=== PATIENT | male | born 1970 | race Caucasian/White ===

== ENCOUNTER 2023-04-16 13:16 | Emergency (ER) | payer BC ==
--- NOTE | 2023-04-16 13:33 | ED ---
Chest Pain HPI - General Chief Complaint: Chest Pain Stated Complaint: Chest Discomfort from Coughing Time Seen by Provider: 04/16/23 13:32 Source: patient, RN notes reviewed Mode of arrival: ambulatory Limitations: no limitations - History of Present Illness Initial Comments: 53-year-old male presents emergency department with chief complaint of right-s ided chest pain, back pain. Patient states that been on and off for last few days. Patient states he does have a history of asthma is a daily smoker he states the pain is intermittent nothing really makes it feel better or worse but does hurt to cough at times he states it is very intense pain when it happens but subsides feels in the lower back, lung region denies any fevers or chills he has a minimally productive cough denies any complaints of abdominal pain including nausea, diarrhea constipation denies any history of cardiac disease. - Related Data Allergies Allergy/AdvReac Type Severity Reaction Status Date / Time No Known Allergies Allergy Verified 04/16/23 13:26 Review of Systems ROS Statement: Those systems with pertinent positive or pertinent negative responses have been documented in the HPI. ROS Other: All systems not noted in ROS Statement are negative. EKG Findings - EKG Comments: EKG Findings:: EKG performed at 13: 34 sinus rhythm with rate of 80 MT 155 QRS 95 QT/QTc 349/379 - EKG Results: EKG: interpreted by YUSUF Past Medical History Past Medical History: Asthma History of Any Multi-Drug Resistant Organisms: None Reported Past Surgical History: No Surgical Hx Reported Past Psychological History: No Psychological Hx Reported Smoking Status: Current every day smoker Past Alcohol Use History: Occasional Past Drug Use History: None Reported General Exam Limitations: no limitations General appearance: alert, in no apparent distress Head exam: Present: atraumatic, normocephalic, normal inspection Eye exam: Present: normal appearance, PERRL, EOMI. Absent: scleral icterus, conjunctival injection, periorbital swelling ENT exam: Present: normal exam, mucous membranes moist Neck exam: Present: normal inspection, full ROM. Absent: tenderness, meningismus, lymphadenopathy Respiratory exam: Present: normal lung sounds bilaterally. Absent: respiratory distress, wheezes, rales, rhonchi, stridor Cardiovascular Exam: Present: regular rate, normal rhythm, normal heart sounds. Absent: systolic murmur, diastolic murmur, rubs, gallop, clicks GI/Abdominal exam: Present: soft, normal bowel sounds. Absent: distended, tenderness, guarding, rebound, rigid Course Vital Signs 04/16/23 04/16/23 04/16/23 13:24 15:59 16:00 Temperature 98.4 F Pulse Rate 87 Respiratory 20 Rate Blood Pressure 137/87 135/92 135/92 O2 Sat by Pulse 99 97 Oximetry 04/16/23 17:29 Temperature Pulse Rate 82 Respiratory 16 Rate Blood Pressure 143/82 O2 Sat by Pulse 97 Oximetry Chest Pain MDM - MDM Was pt. sent in by a medical professional or institution (, PA, OUTREACH LIBRARIAN, urgent care, hospital, or intermediate...) When possible be specific @ -PCP Did you speak to anyone other than the patient for history (EMS, parent, family, police, friend...)? What history was obtained from this source @ -No Did you review nursing and triage notes (agree or disagree)? Why? @ -I reviewed and agree with nursing and triage notes Were old charts reviewed (outside hosp., previous admission, EMS record, old EKG, old radiological studies, urgent care reports/EKG's, intermediate records)? Report findings @ -No old charts were reviewed Differential Diagnosis (chest pain, altered mental status, abdominal pain women, abdominal pain men, vaginal bleeding, weakness, fever, dyspnea, syncope, headache, dizziness, GI bleed, back pain, seizure, CVA, palpatations, mental health, musculoskeletal)? @ -[Differential Chest Pain: Stable Angina, Unstable Angina, STEMI, NSTEMI Aortic Dissection, Pneumothorax, Musculoskeletal, Esophageal Spasm GERD, Cholecystitis, Pancreatitis, Zoster, this is not meant to be an all-inclusive list. EKG interpreted by me (3pts min.). @ -As above X-rays interpreted by me (1pt min.). @ -[Chest x-ray shows no acute cardiopulmonary process CT interpreted by me (1pt min.). @ -None done U/S interpreted by me (1pt. min.). @ -[Ultrasound gallbladder shows gallbladder polyp, hepatic lesion noted recommending MRI What testing was considered but not performed or refused? (CT, X-rays, U/S, labs)? Why? @ -MRI will be completed outpatient offered CT What meds were considered but not given or refused? Why? @ -None Did you discuss the management of the patient with other professionals (professionals i.e. , PA, OUTREACH LIBRARIAN, lab, RT, psych nurse, social services specialist, quantitative developer, teacher, chief communications officer, medical case manager)? Give summary @ -No Was smoking cessation discussed for >3mins.? @ -No Was critical care preformed (if so, how long)? @ -No Were there social determinants of health that impacted care today? How? (Homelessness, low income, unemployed, alcoholism, drug addiction, transporta tion, low edu. Level, literacy, decrease access to med. care, prison, rehab)? @ -No Was there de-escalation of care discussed even if they declined (Discuss DNR or withdrawal of care, Hospice)? DNR status @ -No What co-morbidities impacted this encounter? (DM, HTN, Smoking, COPD, CAD, Cancer, CVA, ARF, Chemo, Hep., AIDS, mental health diagnosis, sleep apnea, morbid obesity)? @ -None Was patient admitted / discharged? Hospital course, mention meds given and route, prescriptions, significant lab abnormalities, going to OR and other pertinent info. @ -Discharge patient's been having intermittent right scapular pain, back pain. This is episodic in nature. Patient's workup was negative other than acute findings on ultrasound. I did offer CT patient feels comfortable with outpatient follow-up return brands were discussed. Undiagnosed new problem with uncertain prognosis? @ -'s Drug Therapy requiring intensive monitoring for toxicity (Heparin, Nitro, Insulin, Cardizem)? @ -No Were any procedures done? @ -No Diagnosis/symptom? @ -[Shoulder pain, back pain, hepatic lesion, gallbladder polyp Acute, or Chronic, or Acute on Chronic? @ -Acute Uncomplicated (without systemic symptoms) or Complicated (systemic symptoms)? @ -[Complicated Side effects of treatment? @ -[No Exacerbation, Progression, or Severe Exacerbation? @ -No Poses a threat to life or bodily function? How? (Chest pain, [place], [place], pneumonia, PE, COPD, DKA, ARF, appy, cholecystitis, CVA, Diverticulitis, Homicidal, Suicidal, threat to staff... and all critical care pts) @ -No Disposition Clinical Impression: Gall bladder polyp, Liver lesion, Chest wall pain Disposition: HOME SELF-CARE Condition: Stable Instructions (If sedation given, give patient instructions): Chest Pain (ED) Additional Instructions: Please return to the Emergency Department if symptoms worsen or any other concerns. Is patient prescribed a controlled substance at d/c from ED?: No Referrals: Earle Chavarria MD [Primary Care Provider] - 1-2 days Veronica Trujillo MD [STAFF PHYSICIAN] - 1-2 days Time of Disposition: 17:21
[2023-04-16 13:41] VITALS: TEMP 98.4
--- NOTE | 2023-04-16 14:18 | XR ---
EXAMINATION TYPE: XR chest 2V DATE OF EXAM: 04/16/2023 COMPARISON: NONE TECHNIQUE: PA and lateral views submitted. HISTORY: Chest pain and cough FINDINGS: The lungs are clear and there is no pneumothorax, pleural effusion, or focal pneumonia. Heart size normal and no overt failure. Osseous structures demonstrate hypertrophic and degenerative changes of the spine. Hyperinflation suggests COPD IMPRESSION: 1. No acute process.
[2023-04-16 14:26] LABS: Basophils % (A) 1 %; Eosinophils # (A) 0.3 k/uL (0-0.7); Eosinophils % (A) 8 %; HCT 45.9 % (39.0-53.0); HGB 15.1 gm/dL (13.0-17.5); Lymphocytes # (A) 1.2 k/uL (1.0-4.8); Lymphocytes % (A) 27 %; MCH 32.5 pg (25.0-35.0); MCHC 32.9 g/dL (31.0-37.0); MCV 98.7 fL (80.0-100.0); Monocytes # (A) 0.3 k/uL (0-1.0); Monocytes % (A) 7 %; Neutrophils # (A) 2.3 k/uL (1.3-7.7); Neutrophils % (A) 54 %; Platelet Count 193 k/uL (150-450); RBC 4.65 m/uL (4.30-5.90); RDW 12.9 % (11.5-15.5); WBC 4.3 k/uL (3.8-10.6)
[2023-04-16 14:37] LABS: ALT 25 U/L (4-49); AST 26 U/L (17-59); African American GFR (CKD) >90 (>60 ml/min/1.73 sqM); Albumin 4.4 g/dL (3.5-5.0); Alkaline Phosphatase 99 U/L (38-126); Anion Gap 7 mmol/L; Blood Urea Nitrogen 21 mg/dL (9-20); Carbon Dioxide 24 mmol/L (22-30); Chloride 108 mmol/L (98-107); Glucose 130 mg/dL (74-99); Magnesium 2.1 mg/dL (1.6-2.3); Non-African American GFR(CKD) >90 (>60 ml/min/1.73 sqM); Potassium 4.5 mmol/L (3.5-5.1); Sodium 139 mmol/L (137-145); Total Bilirubin 0.3 mg/dL (0.2-1.3); Total Protein 6.9 g/dL (6.3-8.2)
[2023-04-16 14:46] LABS: INR 0.8 (<1.2); Partial Thromboplastin Time 23.6 sec (22.0-30.0); Prothrombin Time 9.5 sec (10.0-12.5)
--- NOTE | 2023-04-16 17:03 | US ---
EXAMINATION TYPE: US gallbladder DATE OF EXAM: 04/16/2023 COMPARISON: 11/01/2015. CLINICAL INDICATION: Male, 53 years old with history of pain; right lateral back pain TECHNIQUE: Multiple sonographic images of the right upper quadrant are obtained. FINDINGS: EXAM MEASUREMENTS: Liver Length: 18.0 cm Gallbladder Wall: 0.2 cm CBD: 0.3 cm Right Kidney: 11.0x3.9x5.1 cm Pancreas: dilated pancreatic duct: 0.2cm, tail obscured Liver: enlarged, left lobe complex vascular lesion measuring 1.9x2.7x2.7cm Gallbladder: Gallbladder polyp measuring up to 4 mm. Evidence for sonographic Atkinson's sign: No CBD: wnl Right Kidney: No hydronephrosis or masses seen exam slightly limited by overlying bowel IMPRESSION: 1. Indeterminate left hepatic lobe lesion measuring up to 2.7 cm. MRI liver mass protocol recommende d for complete characterization. In the setting of malignancy this could represent metastatic disease . If there is no history of extrahepatic malignancy this could represent a benign etiology including both malignant and benign etiologies. 2. Gallbladder polyp measuring up to 4 mm. Short-term follow-up in [address] ability.
[2023-04-16 17:51] VITALS: BP 143/82; PULSE 82; RESP 16
== END 2023-04-16 17:29 | disposition home or self-care (01) ==
LOC: EC 13:16
DX: K82.4 Cholesterolosis of gallbladder (principal); K76.9 Liver disease, unspecified; R07.89 Other chest pain; J45.909 Unspecified asthma, uncomplicated; F17.200 Nicotine dependence, unspecified, uncomplicated
CPT/HCPCS: 36415; 71046; 76705; 80053; 83735; 84484; 85025; 85379; 85610; 85730; 93005; 99285

== ENCOUNTER 2024-09-25 14:55 | Emergency (ER) | payer BC ==
[2024-09-25 15:41] VITALS: RESP 18
--- NOTE | 2024-09-25 15:44 | ED ---
General Adult HPI - General Chief complaint: Chest Pain Stated complaint: abn labs Time Seen by Provider: 09/25/24 15:07 Source: patient Mode of arrival: ambulatory Limitations: no limitations - History of Present Illness Initial comments: Patient is a 54-year-old gentleman past medical history of asthma, current smoker presenting today for chest pain. Patient states he began having diarrhea on Sunday, states he had 3-4 loose stools a day. This morning he woke up with substernal chest pain that he describes "as a pain in his core". It lasted from about 5:30 to 9 AM. Patient had further episodes of diarrhea and he took a dose of Pepto-Bismol. He then had a large volume black stool. Went to [facility] where he was given a GI cocktail, had x-rays performed and was sent to the emergency department for further evaluation of his chest pain. Patient states pain has now resolved. He has had similar a few times in the past, stating he has it 1-2 times a year. He has never seen a resaw tailer. He is a current smoker. He denies hemoptysis, cough, fevers or chills. He denies difficulty in breathing or history of blood clots. Is not on blood thinners. Patient's father and grandfather had mitral valve prolapse surgery. Patient's father had a stroke in his 80s, no first degree family members with known history of CAD/CVA. No lower extremity swelling. Patient endorses crampy mid abdominal pain improved with bowel movements. Is not currently present. Drinks alcohol occasionally. No heavy NSAID use. Denies nausea or vomiting. No dysuria or hematuria. No prior abdominal surgeries no history of hypertension, diabetes or hyperlipidemia. He does take testosterone supplementation. Is currently asymptomatic. - Related Data Previous Rx's Medication Instructions Recorded Omeprazole 20 mg PO HS 14 Days #14 cap 09/25/24 Allergies Allergy/AdvReac Type Severity Reaction Status Date / Time No Known Allergies Allergy Verified 09/25/24 16:46 Review of Systems ROS Statement: Those systems with pertinent positive or pertinent negative responses have been documented in the HPI. ROS Other: All systems not noted in ROS Statement are negative. Past Medical History Past Medical History: Asthma Additional Past Medical History / Comment(s): lesion to liver History of Any Multi-Drug Resistant Organisms: None Reported Past Surgical History: Adenoidectomy, Tonsillectomy Past Psychological History: No Psychological Hx Reported Smoking Status: Current every day smoker Past Alcohol Use History: Occasional Past Drug Use History: None Reported General Exam - General Exam Comments Initial Comments: PE: CONSTITUTIONAL: No apparent distress, well appearing SKIN: Warm, dry, no jaundice, hives or petechiae EYES: Pupils are equally round, extraocular movements intact without nystagmus, clear conjunctiva, non-icteric sclera HENT: Normocephalic, atraumatic, moist mucus membranes, oropharynx clear without exudates NECK: , Full range of motion, normal appearance PULMONARY: Clear to auscultation without wheezes, rhonchi, or rales, normal excursion, no accessory muscle use and no stridor CARDIOVASCULAR: Regular rate, rhythm, normal S1 and S2. No appreciated murmurs, rubs or gallops. Strong radial pulses with intact distal perfusion. No lower extremity edema GASTROINTESTINAL: Soft, active bowel sounds throughout, non-tender, non- distended, no palpable masses, no rebound or guarding. No hepatosplenomegaly GENITOURINARY: Rectal exam was performed with Luna, PCT at bedside, showed no hemorrhoids or fissures, no fluctuance MUSCULOSKELETAL: Extremities have no gross deformity, no edema, redness, or swelling. No calf swelling NEUROLOGIC:_a/o x 3, GCS 15, normal mentation and speech. Moves all extremities x 4 without motor or sensory deficit PSYCHIATRIC:_normal mood and affect, thought process is clear and linear Limitations: no limitations Course Vital Signs 09/25/24 09/25/24 09/25/24 14:59 15:36 16:37 Temperature 98.1 F Pulse Rate 89 77 79 Pulse Rate [ 77 Management Planner ] Respiratory 16 18 18 Rate Blood Pressure 195/124 122/80 125/84 O2 Sat by Pulse 98 98 98 Oximetry 09/25/24 17:41 Temperature 98.0 F Pulse Rate 71 Pulse Rate [ Management Planner ] Respiratory 18 Rate Blood Pressure 129/82 O2 Sat by Pulse 98 Oximetry EKG Findings - EKG Comments: EKG Findings:: Sinus rhythm, rate 77 bpm intervals and except limits, no significant ST elevations or depressions, no arrhythmia Medical Decision Making - Medical Decision Making Was pt. sent in by a medical professional or institution (, PA, TELEGRAPH PLANT MAINTAINER, urgent care, hospital, or assisted...) When possible be specific @Patient was sent in by the [facility] Did you speak to anyone other than the patient for history (EMS, parent, family, police, friend...)? What history was obtained from this source @ -No Did you review nursing and triage notes (agree or disagree)? Why? @ -I reviewed nursing and triage notes Were old charts reviewed (outside hosp., previous admission, EMS record, old EKG, old radiological studies, urgent care reports/EKG's, assisted records)? Report findings @ -Medical records reviewed-Reviewed gallbladder ultrasound from 04/16/2023, showed indeterminate left hepatic lobe lesion measuring up to 2.7 cm Differential Diagnosis (chest pain, altered mental status, abdominal pain women, abdominal pain men, vaginal bleeding, weakness, fever, dyspnea, syncope, headache, dizziness, GI bleed, back pain, seizure, CVA, palpatations, mental health, musculoskeletal)? @Differential Chest Pain: Stable Angina, Unstable Angina, STEMI, NSTEMI Aortic Dissection, pericarditis, pleurisy, chostochondirits, Pneumothorax, Musculoskeletal, Esophageal Spasm GERD, Cholecystitis, Pancreatitis, Zoster, this is not meant to be an all- inclusive list. EKG interpreted by me (3pts min.). @ -As above X-rays interpreted by me (1pt min.). @ -None done CT interpreted by me (1pt min.). @ -Personally viewed CT scan I see no evidence of pulmonary embolism I agree with radiologist interpretation CT significant for no PE, did show wall thickening with surrounding [place] changes involving the stomach and distal esophagus suggestive of gastritis/esoph agitis, noted redemonstration of left hepatic lobe 3 cm lesion from prior ultrasound, peripheral enhancement suggestive benign hemangioma, recommend further evaluation with MR abdomen with IV contrast for confirmation U/S interpreted by me (1pt. min.). @ -None done What testing was considered but not performed or refused? (CT, X-rays, U/S, labs)? Why? @ -None What meds were considered but not given or refused? Why? @ -None Did you discuss the management of the patient with other professionals ( professionals i.e. , PA, TELEGRAPH PLANT MAINTAINER, lab, RT, psych nurse, transition social worker, hiv/aids care nurse, teacher, financial services officer, casey saw operator)? Give summary @ -No Was smoking cessation discussed for >3mins.? @ -Yes, advised patient to stop smoking, discussed the importance of smoking cessation on his health Was critical care preformed (if so, how long)? @ -No Were there social determinants of health that impacted care today? How? (Homelessness, low income, unemployed, alcoholism, drug addiction, transportation, low edu. Level, literacy, decrease access to med. care, fpc, rehab)? @ -No Was there de-escalation of care discussed even if they declined (Discuss DNR or withdrawal of care, Hospice)? @ -No What co-morbidities impacted this encounter? (DM, HTN, Smoking, COPD, CAD, Cancer, CVA, ARF, Chemo, Hep., AIDS, mental health diagnosis, sleep apnea, morbid obesity)? @ -Smoking Was patient admitted / discharged? Hospital course, mention meds given and route, prescriptions, significant lab abnormalities, going to OR and other pertinent info. @ Discharged- Patient is a 54-year-old gentleman history of asthma, current smoker presenting today for substernal chest pain after having diarrhea for 4 days. EKG reassuring. Of note documented blood pressure on arrival 195/124 however when I went into room shortly after this, patient blood pressure was 117 systolic and on my recheck was 128/100. I suspect initial blood pressure may have been secondary to positioning or inaccurate reading given rapid decrease in blood pressure without intervention. On my assessment patient is well-appearing and in no acute distress. His lungs are clear to auscultation bilaterally. Abdomen is soft and nontender. He has no leg swelling. Discussed with patient plan for D-dimer, troponin, EKG, labs, aspirin. Patient agreeable plan of care. D-dimer was elevated at 3.62. Ordered CT PE study. Additional reviewed. Grossly within normal limits. Other Abnormal values not concerning for acute pathology related to presenting complaint. Troponin undetectable. PE study did not show any pulmonary embolism. Did note gastritis and esophagitis as well as benign hemangioma. Patient has heart score of 3. On reassessment patient is asymptomatic. I discussed with him remaining in the hospital for observation to see cardiology versus discharge home. Patient states that he was recently accepted by a new primary care provider and would like to follow-up with him. He would prefer discharge. I did discuss with the patient signs and symptoms to monitor for closely warranting return to the ER such as return of chest pain, shortness of breath, chest pain with exertion, or with diaphoresis nausea or vomiting with onset, lower extremity swelling, hemoptysis fevers or diarrhea that lasts longer than another 48 hours. Patient was instructed to stop smoking, he will also stop taking [id number] supplements will follow-up with his doctor regarding continuing these. Suspect patient's pain may have been something secondary to esophagitis so patient be sent home with omeprazole. Lastly, discussed liver hemangioma, pt is aware of this, discussed with him the importance of following up with his primary care provider for MRI outpatient within the next few months. Patient understanding of this. In my medical judgment there is currently no evidence of an immediate life- threatening or surgical condition. Discharge is therefore indicated at this time. Discharge treatment instructions, follow up instructions, and appropriate emergency department return precautions were discussed with the patient and/or medical decision maker. Patient and/or medical decision maker expressed understanding of and agreed with the treatment plan, follow up instructions, and emergency department return precaution. All patient's and/or medical decision maker's questions were answered. The patient was advised that a small risk still exists that a serious condition could develop and was therefore instructed to return to the ED for any changes in symptoms, persistent symptoms, inability to obtain proper follow-up or for any further concerns. Patient received verbal and written instructions for this condition. Undiagnosed new problem with uncertain prognosis? @ -No Drug Therapy requiring intensive monitoring for toxicity (Heparin, Nitro, Insulin, Cardizem)? @ -No Were any procedures done? @ -No Diagnosis/symptom? @Diarrhea,chest pain esophagitis Acute, or Chronic, or Acute on Chronic? acute Uncomplicated (without systemic symptoms) or Complicated (systemic symptoms)? @complicated Side effects of treatment? @ -No Exacerbation, Progression, or Severe Exacerbation? @ -No Poses a threat to life or bodily function? How? (Chest pain, [place], CA, pneumonia, PE, COPD, DKA, ARF, appy, cholecystitis, CVA, Diverticulitis, Homicidal, Suicidal, threat to staff... and all critical care pts) @ -No, not at time of discharge - Lab Data Result diagrams: 09/25/24 15:46 09/25/24 15:46 Lab Results 09/25/24 09/25/24 09/25/24 Range/Units 15:35 15:46 15:46 WBC 8.38 (4.50-10.00) 10*3/uL RBC 4.87 (4.40-5.60) 10*6/uL Hgb 16.0 (13.0-17.0) g/dL Hct 46.3 (39.6-50.0) % MCV 95.1 (80.0-97.0) fL MCH 32.9 H (27.0-32.0) pg MCHC 34.6 (32.0-37.0) g/dL Plt Count 219 (140-440) 10*3/uL MPV 9.7 (9.5-12.2) fL Immature Gran % (Auto) 0.2 % Neutrophils % 70.3 % Lymphocytes % 15.3 % Monocytes % 4.9 % Eosinophils % 8.9 % Basophils % 0.4 % Immature Gran # 0.02 (0.00-0.04) 10*3/uL Neutrophils # 5.89 (1.80-7.70) 10*3/uL Lymphocytes # 1.28 (0.90-5.00) 10*3/uL Monocytes # 0.41 (0.20-1.00) 10*3/uL Eosinophils # 0.75 H (0.04-0.35) 10*3/uL Basophils # 0.03 (0.00-0.10) 10*3/uL PT 11.2 (10.0-12.5) sec INR 1.0 (<1.2) APTT 23.3 (22.0-30.0) sec D-Dimer 3.62 H (<0.60) mg/L FEU Sodium (137-145) mmol/L Potassium (3.5-5.1) mmol/L Chloride (98-107) mmol/L Carbon Dioxide (22-30) mmol/L Anion Gap mmol/L BUN (9-20) mg/dL Creatinine (0.66-1.25) mg/dL Est GFR (CKD-EPI)AfAm (>60 ml/min/1.73 sqM) Est GFR (CKD-EPI)NonAf (>60 ml/min/1.73 sqM) Glucose (74-99) mg/dL Calcium (8.4-10.2) mg/dL Magnesium (1.6-2.3) mg/dL Total Bilirubin (0.2-1.3) mg/dL AST (17-59) U/L ALT (4-49) U/L Alkaline Phosphatase (38-126) U/L Troponin I (0.000-0.034) ng/mL NT-Pro-B Natriuret Pep pg/mL Total Protein (6.3-8.2) g/dL Albumin (3.5-5.0) g/dL Amylase (30-110) U/L Lipase (23-300) U/L Stool Occult Blood Negative (Negative) 09/25/24 09/25/24 Range/Units 15:46 15:46 WBC (4.50-10.00) 10*3/uL RBC (4.40-5.60) 10*6/uL Hgb (13.0-17.0) g/dL Hct (39.6-50.0) % MCV (80.0-97.0) fL MCH (27.0-32.0) pg MCHC (32.0-37.0) g/dL Plt Count (140-440) 10*3/uL MPV (9.5-12.2) fL Immature Gran % (Auto) % Neutrophils % % Lymphocytes % % Monocytes % % Eosinophils % % Basophils % % Immature Gran # (0.00-0.04) 10*3/uL Neutrophils # (1.80-7.70) 10*3/uL Lymphocytes # (0.90-5.00) 10*3/uL Monocytes # (0.20-1.00) 10*3/uL Eosinophils # (0.04-0.35) 10*3/uL Basophils # (0.00-0.10) 10*3/uL PT (10.0-12.5) sec INR (<1.2) APTT (22.0-30.0) sec D-Dimer (<0.60) mg/L FEU Sodium 137 (137-145) mmol/L Potassium 4.3 (3.5-5.1) mmol/L Chloride 105 (98-107) mmol/L Carbon Dioxide 23 (22-30) mmol/L Anion Gap 9 mmol/L BUN 17 (9-20) mg/dL Creatinine 0.89 (0.66-1.25) mg/dL Est GFR (CKD-EPI)AfAm >90 (>60 ml/min/1.73 sqM) Est GFR (CKD-EPI)NonAf >90 (>60 ml/min/1.73 sqM) Glucose 99 (74-99) mg/dL Calcium 9.7 (8.4-10.2) mg/dL Magnesium 1.9 (1.6-2.3) mg/dL Total Bilirubin 0.8 (0.2-1.3) mg/dL AST 26 (17-59) U/L ALT 19 (4-49) U/L Alkaline Phosphatase 94 (38-126) U/L Troponin I <0.012 (0.000-0.034) ng/mL NT-Pro-B Natriuret Pep 25 pg/mL Total Protein 7.0 (6.3-8.2) g/dL Albumin 4.8 (3.5-5.0) g/dL Amylase 36 (30-110) U/L Lipase 110 (23-300) U/L Stool Occult Blood (Negative) Disposition Clinical Impression: Liver hemangioma, Esophagitis, Diarrhea Disposition: HOME SELF-CARE Condition: Good Instructions (If sedation given, give patient instructions): Chest Pain (ED), Acute Diarrhea (ED), Esophagitis (ED) Additional Instructions: Every disease is a spectrum and a small chance still exists that a serious condition could develop, for this reason, please monitor yourself closely for new, changing or worsening symptoms, diarrhea for greater than additional 48 hours, stools, further black stools especially while not taking Pepto-Bismol, tarry stools, return of chest pain, especially chest pain that comes on with activity or exertion, sweatiness shortness of breath or nausea, fever, inability to tolerate/keep down fluids or your medications, inability to follow up with outpatient providers as instructed and should you experience these symptoms or should you have any further concerns for your wellbeing please return to the ED or call 911 immediately. Please follow-up with your primary care provider within the next 2 weeks to discuss MRI for "liver hemangioma". PLEASE call your primary care physician as soon as possible to arrange / discuss plan for followup appointment. Appointment in the next 1-3 days is strongly encouraged if possible. PLEASE let us know here before you leave if there is anything further we can do to be of any assistance. Take care and feel Better! Prescriptions: Omeprazole 20 mg PO HS 14 Days #14 cap Is patient prescribed a controlled substance at d/c from ED?: No Referrals: None,Stated [REFERRING] - 1-2 days
[2024-09-25] MEDS: SODIUM CHLORIDE 0.9% 1,000 ML IV STA (15:47)
[2024-09-25] MEDS: ASPIRIN 81 MG PO STA (15:48)
[2024-09-25 15:55] LABS: Basophils # (A) 0.03 10*3/uL (0.00-0.10); Basophils % (A) 0.4 %; Eosinophils # (A) 0.75 10*3/uL (0.04-0.35); Eosinophils % (A) 8.9 %; HCT 46.3 % (39.6-50.0); HGB 16.0 g/dL (13.0-17.0); Lymphocytes # (A) 1.28 10*3/uL (0.90-5.00); Lymphocytes % (A) 15.3 %; MCH 32.9 pg (27.0-32.0); MCHC 34.6 g/dL (32.0-37.0); MCV 95.1 fL (80.0-97.0); Monocytes # (A) 0.41 10*3/uL (0.20-1.00); Monocytes % (A) 4.9 %; Neutrophils # (A) 5.89 10*3/uL (1.80-7.70); Neutrophils % (A) 70.3 %; Platelet Count 219 10*3/uL (140-440); RBC 4.87 10*6/uL (4.40-5.60); RDW 13.0 % (11.5-14.5); WBC 8.38 10*3/uL (4.50-10.00)
[2024-09-25 16:07] LABS: ALT 19 U/L (4-49); AST 26 U/L (17-59); African American GFR (CKD) >90 (>60 ml/min/1.73 sqM); Albumin 4.8 g/dL (3.5-5.0); Alkaline Phosphatase 94 U/L (38-126); Amylase 36 U/L (30-110); Anion Gap 9 mmol/L; Blood Urea Nitrogen 17 mg/dL (9-20); Calcium 9.7 mg/dL (8.4-10.2); Carbon Dioxide 23 mmol/L (22-30); Chloride 105 mmol/L (98-107); Glucose 99 mg/dL (74-99); Lipase 110 U/L (23-300); Magnesium 1.9 mg/dL (1.6-2.3); Non-African American GFR(CKD) >90 (>60 ml/min/1.73 sqM); Potassium 4.3 mmol/L (3.5-5.1); Sodium 137 mmol/L (137-145); Total Protein 7.0 g/dL (6.3-8.2)
[2024-09-25 16:10] LABS: INR 1.0 (<1.2); Partial Thromboplastin Time 23.3 sec (22.0-30.0); Prothrombin Time 11.2 sec (10.0-12.5)
[2024-09-25 16:16] LABS: NT-Pro-B-Type Natriuretic Pept 25 pg/mL
--- NOTE | 2024-09-25 17:05 | CT ---
EXAMINATION TYPE: CT chest angio for PE CT DLP: 316.7 mGycm, Automated exposure control for dose reduction was used. DATE OF EXAM: 09/25/2024 4:36 PM COMPARISON: Chest radiograph 04/16/2023, ultrasound gallbladder 04/16/2023 CLINICAL INDICATION:Male, 54 years old with history of CP, elevated dimer; CP, elevated D-dimer. TECHNIQUE/CONTRAST: CTA scan of the thorax is performed with IV Contrast, patient injected with 100 ml mL of Isovue 370, pulmonary embolism protocol. MIP images are created and reviewed. FINDINGS: Pulmonary Artery: There is no evidence for a filling defect within the pulmonary vasculature to sugge st acute pulmonary embolism. The pulmonary artery is of normal size. Lungs/Pleura: No evidence of focal consolidation, pleural effusion or pneumothorax. There is a 7 mm n odule along the right minor fissure (series 406, image 88). Airway: Large airways are patent. Heart: Size within normal limits.No pericardial effusion. No significant coronary artery calcificatio ns. Vasculature: No evidence of aortic aneurysm. Mediastinum: No evidence of adenopathy. Musculoskeletal: No acute osseous abnormalities. Anterior osteophytosis at T8-T9. Soft Tissues: Mild bilateral gynecomastia. Lower neck: No significant findings. Upper Abdomen: Peripherally enhancing left hepatic lobe 3.0 cm lesion (series 401, image 137). Periga stric inflammatory changes with some wall thickening of the stomach along the lesser curvature. Circu mferential wall thickening of the distal esophagus. IMPRESSION: 1. No evidence of pulmonary embolism. 2. Wall thickening with surrounding inflammatory changes involving the stomach and distal esophagus. Finding suggests gastritis/esophagitis. Correlate clinically. 3. Redemonstration of left hepatic lobe 3 cm lesion from prior ultrasound. There is peripheral enhanc ement. Findings suggest a benign hemangioma. Recommend further evaluation with MR abdomen with IV con trast (liver mass protocol) for confirmation. [facility], , 09/25/2024 5:03 PM
[2024-09-25] MEDS: LOPERAMIDE 2 MG CAP PO STA (17:41)
[2024-09-25 17:43] VITALS: BP 129/82; PULSE 71; TEMP 98
== END 2024-09-25 17:44 | disposition home or self-care (01) ==
LOC: EC 14:55
DX: K20.91 Esophagitis, unspecified with bleeding (principal); D18.03 Hemangioma of intra-abdominal structures; R19.7 Diarrhea, unspecified; F17.200 Nicotine dependence, unspecified, uncomplicated
CPT/HCPCS: 36415; 93005; 85379; 83880; 80053; 82150; 83690; 83735; 84484; 85025; 85610; 85730; 82272; 71275; 99285; 96360; Q9967